=== PATIENT | male | born 1960 | race Caucasian/White ===

== ENCOUNTER 2018-01-06 08:49 | Inpatient (IN) | payer SELFPAY ==
--- NOTE | 2018-01-06 09:01 | ED.PDOC ---
History of Present Illness - General Chief Complaint: Abdominal Pain Stated Complaint: abdominal pain;n/v Time Seen by Provider: 01/06/18 09:01 Information Source: patient Exam Limitations: no limitations - History of Present Illness Initial Comments: espinoza Mendoza 57 y/o male stated that he had multiple episodes of nausea vomiting since early this am then followed by constant burning abdominal pain all over his abdomen had 3 bowel movements but no diarrhea.No ill contact,no recent antibiotic use,ate meat last night.Denies fever,dysuria ,blood in stool or urine. Abdominal Pain Onset Location: generalized abdomen Pain Radiation: no radiation Quality: burning, steady Timing/Duration: 4-6 hours Improving Factors: nothing Worsening Factors: nothing Associated Symptoms: other - see hpi Review of Systems - Review of Systems Constitutional: States: no symptoms reported EENTM: States: no symptoms reported Respiratory: States: no symptoms reported Cardiology: States: no symptoms reported Gastrointestinal/Abdominal: States: see HPI Genitourinary: States: no symptoms reported Musculoskeletal: States: no symptoms reported Skin: States: no symptoms reported Past Medical History (General) - Patient Medical History Hx Hypertension: Yes Hx Diabetes: No Hx Hepatitis C: Yes - active, no treatment Hx MRSA: Yes MRSA Source:: Wound Surgical History: appendectomy - Vaccination History Hx Tetanus, Diphtheria Vaccination: Yes - longer then 5 years ago Hx Influenza Vaccination: No - Social History Hx Tobacco Use: Yes Hx Substance Use: Yes - remote history Hx Physical Abuse: No Hx Emotional Abuse: No - Activities of Daily Living Grooming Ability: Independent Eating (Feeding) Ability: Independent Toileting Ability: Independent Family Medical History - Family History Father Family History: No Known Physical Exam - Physical Exam General Appearance: Alert, Anxious, No apparent distress Eyes, Ears, Nose, Throat Exam: PERRL/EOMI, normal ENT inspection Neck: non-tender, full range of motion, supple, normal inspection Respiratory: chest non-tender, lungs clear, normal breath sounds, no respiratory distress Cardiovascular/Chest: normal peripheral pulses, regular rate, rhythm, no murmur Peripheral Pulses: No deficit Gastrointestinal/Abdominal: normal bowel sounds, soft, no organomegaly, tenderness - no peritoneal signs mostly mid abdomen Back Exam: no CVA tenderness, no vertebral tenderness Extremity: normal range of motion, non-tender, no pedal edema, no calf tenderness Neurologic: alert, oriented x 3 Skin Exam: normal color, warm/dry Progress - Progress Progress: 01/06/18 09:58 Vital Signs - 8 hr 01/06/18 08:55 Temperature 97.4 F L Pulse Rate [ 64 Left Radial] Respiratory 20 Rate Blood Pressure 198/96 [Left Arm] O2 Sat by Pulse 100 Oximetry 01/06/18 11:48 Mentioned about his positve meth urine stated had smoked meth last week. - Results/Orders Results/Orders: 01/06/18 09:07 IV Care:Saline Lock per Protoc QSHIFT 01/06/18 10:00 Hold Metformin x 48Hrs [id number] 01/06/18 11:21 levoFLOXacin 500MG IV [Levaquin 500MG IV] 500 mg Premix Bag 1 bag IVPB ONCE metroNIDAZOLE IV PREMIX 500MG [Flagyl IV Premix 500 MG/100 ML] 500 mg Premix Bag 1 bag IVPB ONCE 01/06/18 11:37 TROPONIN-I Stat EKG Assessment ONCE 01/06/18 11:45 EKG STAT Laboratory Results - last 24 hr 01/06/18 01/06/18 01/06/18 09:10 09:10 09:38 WBC 12.2 H RBC 5.23 Hgb 16.6 Hct 50.1 MCV 95.8 H MCH 31.7 H MCHC 33.1 RDW 13.5 Plt Count 183 MPV 9.0 Absolute Neuts (auto) 10.70 H Absolute Lymphs (auto) 0.90 L Absolute Monos (auto) 0.50 Absolute Eos (auto) 0.10 Absolute Basos (auto) 0.10 Neutrophils % 87.8 H Lymphocytes % 7.2 L Monocytes % 4.0 Eosinophils % 0.4 L Basophils % 0.6 PT 9.2 INR 0.92 PTT (SP) 26.1 Sodium 137 Potassium 4.8 Chloride 104 Carbon Dioxide 29 Anion Gap 8.8 L BUN 10 Creatinine 0.89 BUN/Creatinine Ratio 11.2 Random Glucose 136 H Serum Osmolality 274.9 L Lactic Acid 1.0 Calcium 9.4 Magnesium 2.1 Total Bilirubin 0.8 Direct Bilirubin 0.1 Indirect Bilirubin 0.7 AST 22 ALT 33 Alkaline Phosphatase 73 Creatine Kinase 86 CK-MB (CK-2) 2.7 CK-MB (CK-2) % Not Reportable Troponin I < 0.02 Serum Total Protein 6.9 Albumin 3.9 Lipase 28 Urine Color Urine Appearance Urine pH Ur Specific [place] Urine Protein Urine Glucose (UA) Urine Ketones Urine Blood Urine Nitrite Urine Bilirubin Urine Urobilinogen Ur Leukocyte Esterase Urine RBC Urine WBC Ur Epithelial Cells Amorphous Sediment Urine Bacteria Urine Opiates Screen Urine Barbiturates Ur Phencyclidine Scrn U Amphetamin/Meth Scrn U Benzodiazepines Scrn U Cocaine Metab Screen U Cannabinoids Screen Ethyl Alcohol 01/06/18 01/06/18 01/06/18 09:38 10:28 10:28 WBC RBC Hgb Hct MCV MCH MCHC RDW Plt Count MPV Absolute Neuts (auto) Absolute Lymphs (auto) Absolute Monos (auto) Absolute Eos (auto) Absolute Basos (auto) Neutrophils % Lymphocytes % Monocytes % Eosinophils % Basophils % PT INR PTT (SP) Sodium Potassium Chloride Carbon Dioxide Anion Gap BUN Creatinine BUN/Creatinine Ratio Random Glucose Serum Osmolality Lactic Acid Calcium Magnesium Total Bilirubin Direct Bilirubin Indirect Bilirubin AST ALT Alkaline Phosphatase Creatine Kinase CK-MB (CK-2) CK-MB (CK-2) % Troponin I Serum Total Protein Albumin Lipase Urine Color Yellow Urine Appearance Sl cloudy Urine pH 8.5 H Ur Specific [place] 1.015 Urine Protein Negative Urine Glucose (UA) Negative Urine Ketones Negative Urine Blood Negative Urine Nitrite Negative Urine Bilirubin Negative Urine Urobilinogen 0.2 Ur Leukocyte Esterase Negative Urine RBC 0 Urine WBC 0 Ur Epithelial Cells 0 Amorphous Sediment 1+ Urine Bacteria 0 Urine Opiates Screen Negative Urine Barbiturates Negative Ur Phencyclidine Scrn Negative U Amphetamin/Meth Scrn Positive H U Benzodiazepines Scrn Negative U Cocaine Metab Screen Negative U Cannabinoids Screen Negative Ethyl Alcohol 0.00 - EKG/XRAY/CT XRAY: chest - atelectatic changes bilateral CT Ordered: Yes - gallstone;colitis Departure - Departure Clinical Impression: Colitis, acute, Methamphetamine dependence, History of hepatitis C Abdominal pain Qualifiers: Abdominal location: unspecified location Qualified Code(s): R10.9 - Unspecified abdominal pain Gallstone Qualifiers: Cholecystitis presence: without cholecystitis Biliary obstruction: without biliary obstruction Qualified Code(s): K80.20 - Calculus of gallbladder without cholecystitis without obstruction Hypertension Qualifiers: Hypertension type: unspecified Qualified Code(s): I10 - Essential (primary) hypertension Time of Disposition: 13:57 Disposition: Admit Patient Condition: Fair Departure Forms: Patient Portal Self Enrollment Home Medications: Ambulatory Orders Acetaminophen W/ Codeine [Tylenol W/ CODEINE #3] 1 ea PO Q4H PRN #12 04/10/15 Cephalexin [Keflex] 500 mg PO QID #28 cap 04/10/15 Decision To Admit - Decistion To Admit Decision to Admit Reason: Admit from ER Decision to Admit Date: 01/06/18 - D/W Saritha Monterroso-ANP/Hospitalist Decision to Admit Time: 13:55
[2018-01-06] MEDS ORDERED: LACTATED RINGERS 1,000 ML IVS ONE (09:08)
--- NOTE | 2018-01-06 09:33 | RAD ---
EXAM DESCRIPTION: Chest,1 View CLINICAL HISTORY: pain COMPARISON: None Available. Findings/impression: Single upright portable frontal view of the chest. Cardiomediastinal silhouette and pulmonary vascularity are within normal limits. Linear opacities in the bilateral lung bases most likely represent subsegmental atelectasis. Otherwise, lungs show no confluent pulmonary infiltrates. Costophrenic angles are sharp. No pneumothorax. Likely a healing/healed posterolateral left fifth rib fracture. Included upper abdomen shows a nonspecific bowel gas pattern. Electronically signed by: Kyaw Iglesias MD 01/06/2018 9:31 AM CDT
[2018-01-06] MEDS ORDERED: MORPHINE SULFATE INJ 10 MG/ML VIAL IV ONE (09:50)
[2018-01-06] MEDS ORDERED: PANTOPRAZOLE INJECTION 80 MG in SODIUM CHLORIDE 0.9% 100ML 80 ML IVPB ONE (09:50)
[2018-01-06] MEDS ORDERED: PROMETHAZINE HCL INJ 25 MG/ML VIAL IM ONE (09:50)
[2018-01-06] MEDS ORDERED: SODIUM CHLORIDE 0.9% 100ML 100 ML IVPB ONE (09:59)
[2018-01-06] MEDS ORDERED: PANTOPRAZOLE SODIUM IV 40 MG VIAL ONE (09:59)
--- NOTE | 2018-01-06 11:17 | CT ---
EXAM DESCRIPTION: Abdomen/Pelvis w/Contrast: Computed Tomography. CLINICAL HISTORY: abdominal pain. Right upper quadrant pain. COMPARISON: None. TECHNIQUE: Spiral-axial scans at 5 x 5 mm intervals through the abdomen and pelvis, after nonionic IV contrast without oral contrast. Coronal and sagittal 2.0 mm reconstructions. No delayed scans. No adverse reactions. Total Exam DLP: 1323.39 mGy-cm. This exam was performed according to our departmental dose-optimization program which includes automated exposure control, adjustment of the mA and/or kV according to patient size and/or use of iterative reconstruction technique; to reduce radiation dose to as low as reasonably achievable (ALARA). FINDINGS: Lung bases and pleura: Bibasilar atelectasis. Coronary artery calcifications. Liver, Stomach, Spleen, Adrenal Glands: Unremarkable. Pancreas, Gallbladder, Ducts: Multiple rim calcified stones in the gallbladder with the largest measuring 2 cm. No wall thickening. Large gallbladder fold near the neck which contains a stone. Gallbladder dilated but no fatty stranding. Common bile duct 6.5 mm proximally and 5 mm distally. Pancreas negative, pancreatic duct not dilated. Kidneys and Ureters: Unremarkable. Mesentery: No stranding, fascial thickening, ascites or free air. Aorta: Minimal distal atherosclerotic calcification and intimal wall thickening above the bifurcation. Small Bowel: Intermittent fluid and gas but no significant air-fluid levels or distention. Terminal Ileum/Cecum: Appendix not seen. Slightly distended by fecal material. Appendix not seen.. Colon: Intermittent segments of the colon appear to have minimal edema and wall thickening and lack of haustral markings. This can be seen in the hepatic flexure proximal transverse colon descending colon and proximal sigmoid. Marked redundancy of the sigmoid colon but no complications. Pelvic Organs: Prostate gland with central calcification abutting the urinary bladder with mild wall thickening. No fluid in the anterior peritoneal reflection. Spine and Bony Pelvis: Endplate spurs at some levels mostly lower thoracic spine. Abdominal Wall/Back Soft Tissues: Negative. IMPRESSION: 1. Gallbladder enlarged with prominent fold near the neck which contains a gallstone. 2 larger gallstones in the body, largest is 2 cm diameter. No wall thickening or surrounding fluid or mesenteric stranding. Borderline dilation of the common bile duct. Pancreas negative. 2. Nonspecific intermittent colitis in the proximal transverse colon, mid and distal descending colon and proximal sigmoid colon. Marked redundancy of the sigmoid colon. Colitis with these findings needs correlation for ulcerative colitis or Crohn's disease. Small bowel is unremarkable. 3. Minimally bladder wall thickening. Prostate gland abutting the bladder with central calcification. 4. Other organs are negative. Electronically signed by: Louis Alva MD 01/06/2018 11:16 AM CDT
[2018-01-06] MEDS ORDERED: ALUM & MAG HYDROX-SIMETHICONE 30 ML, LIDOCAINE VISCOUS 2% 15 ML PO ONE ×2 (11:18)
[2018-01-06] MEDS ORDERED: SUCRALFATE 1 GM TAB PO ONE (11:18)
[2018-01-06] MEDS ORDERED: metroNIDAZOLE IV PREMIX 500MG 500 MG in PREMIX BAG 1 BAG IVPB ONE (11:21)
[2018-01-06] MEDS ORDERED: levoFLOXacin 500MG IV 500 MG in PREMIX BAG 1 BAG IVPB ONE (11:21)
[2018-01-06] MEDS ORDERED: ALUM & MAG HYDROX-SIMETHICONE 30 ML UD ONE (11:44)
[2018-01-06] MEDS ORDERED: LIDOCAINE HCL 2% (MOUTH-THROAT) 15 ML UD ONE (11:44)
[2018-01-06] MEDS ORDERED: metroNIDAZOLE IV PREMIX 500MG 100 ML IVPB ONE ×3 (11:45→23:40)
[2018-01-06] MEDS ORDERED: SUCRALFATE 1 GM/10 ML 1 GM UD ONE (11:51)
[2018-01-06] MEDS ORDERED: SUCRALFATE 1 GM/10 ML 1 GM UD PO ONE (11:52)
[2018-01-06] MEDS ORDERED: levoFLOXacin 500MG IV 100 ML IVPB ONE (13:12)
[2018-01-06] MEDS ORDERED: PROMETHAZINE HCL INJ 50 MG in SODIUM CHLORIDE 0.9% 50ML 50 ML IM ONE (14:14)
[2018-01-06] MEDS ORDERED: PROMETHAZINE HCL INJ 25 MG/ML VIAL ONE (14:22)
[2018-01-06] MEDS ORDERED: SODIUM CHLORIDE 0.9% 50ML 50 ML ONE (14:22)
--- NOTE | 2018-01-06 15:07 | US ---
EXAM DESCRIPTION: Abdomen,Complete: Ultrasound. CLINICAL HISTORY: RUQ abd pain; gall stones COMPARISON: None Available. TECHNIQUE: Transabdominal scannin-dimensional and Doppler modes. FINDINGS: Gallbladder: Multiple echogenic stones in the gallbladder. Tender with transducer pressure. Gallbladder wall borderline thickened measuring 3.2 mm. No fluid around the wall. Common bile duct: 5.4 mm, normal caliber. Liver: Long axis of the right lobe is 12.5 cm. Left lobe was not well visualized due to patient body habitus. Normal echogenicity and ducts. Hepatopedal flow in the portal vein and normal caliber. Smooth capsule with no ascites. Pancreas: Normal size and echogenicity duct not seen.. Abdominal aorta: Normal caliber from the proximal segment to the distal bifurcation. IVC: visualized; normal caliber. Spleen normal echogenicity; long axis measurement is 10.7 cm. Right kidney: 10.9 cm long axis.Minimal cortical thinning but normal echogenicity. No hydronephrosis or perinephric fluid. Left kidney: 11 cm long axis. Minimal cortical thinning but normal echogenicity. No hydronephrosis or perinephric fluid. IMPRESSION: 1. Multiple echogenic stones in the gallbladder. Patient was tender with transducer pressure (positive Beltran's transducer sign). Minimal wall thickening. No fluid around the gallbladder wall. Consistent with cholelithiasis and acute cholecystitis. Normal caliber of the common bile duct. 2. Steatosis of the liver normal size. Normal ducts in vascularity. Smooth capsule with no ascites. Pancreas is unremarkable. 3. Minimal cortical thinning in the kidneys but otherwise unremarkable. Normal caliber of the abdominal aorta and IVC. Spleen is negative. Electronically signed by: Louis Alva MD 01/06/2018 3:06 PM CDT
--- NOTE | 2018-01-06 15:36 | HP ---
SUPERVISING PHYSICIAN: Festus Cervantes M.D. CHIEF COMPLAINT: Abdominal pain with nausea and vomiting. HISTORY OF PRESENT ILLNESS: This is a 57 year-old male patient that presented to the Emergency Room. At 3:30 this morning his nausea and vomiting started with severe right upper quadrant pain. He did have 3 bowel movements but he said they were not diarrhea. He said the burning was constant in his right upper quadrant and he threw up multiple times. It got to the point that it was so bad he came to the Emergency Room. He has not been around anyone that is sick recently or taken any antibiotics. He is hepatitis C positive and he does have a history of gastroesophageal reflux disease. In the Emergency Room his laboratory was done and he had a WBC of 12.2 with hemoglobin 16.6 and hematocrit 50.1. He had a left shift on his differential. Electrolytes were basically within normal limits. Lactic acid was 1. Cardiac enzymes were negative. Lipase was 28. Urine had a pH of 8.5. UDS was positive for amphetamines/methamphetamines. CT of the abdomen shows: 1) Gallbladder enlarged with prominent fold near the neck which contains a gallstone. Two larger gallstones in the body, the largest is 2 cm in diameter. No wall thickening or surrounding fluid or mesenteric stranding. Borderline dilatation of the common bile duct. The pancreas is negative. 2) Nonspecific intermittent colitis in the proximal transverse colon, mid and distal descending colon and proximal sigmoid colon. Marked redundancy of the sigmoid colon colitis with these findings. Needs correlation for ulcerative colitis or Crohn's disease. Small bowel is unremarkable. 3) Minimal bladder wall thickening. Prostate gland abutting the bladder with central calcification. 4 ) Other organs are negative. His abdominal ultrasound shows: 1) Multiple echogenic stones in the gallbladder. The patient was tender with transducer pressure, a positive Beltran's transducer sign. Minimal wall thickening. No fluid around the gallbladder wall consistent with cholelithiasis and acute cholecystitis. Normal caliber of the common bile duct. 2) Steatosis of the liver. Normal size. Normal ducts and vascularity. Smoother capsule with no ascites. Pancreas is unremarkable. 3) Minimal cortical thinning in the kidneys but otherwise unremarkable. Normal caliber of the abdominal aorta and IVC. Spleen is negative. The patient was given fluids in the E. R. He was also started on Levaquin and Flagyl. He was given some morphine for pain as well as some Phenergan for nausea. I was called for hospital admission. PAST MEDICAL HISTORY: 1. Gastroesophageal reflux disease. 2. Hypertension, although untreated. 3. Hepatitis C. PAST SURGICAL HISTORY: 1. Appendectomy. OUTPATIENT MEDICATIONS: None. ALLERGIES: NO KNOWN DRUG ALLERGIES. SOCIAL HISTORY: He lives in [place]. He smokes 1 pack of cigarettes daily. He does not drink any alcoholic beverages. He uses cocaine and methamphetamines occasionally. REVIEW OF SYSTEMS: GENERAL: Positive for subjective fever. Negative for fatigue or weight changes. HEENT: Negative for ear pain, vision changes, sore throat or sinus symptoms. RESPIRATORY: Negative for coughing, wheezing or shortness of breath. CARDIAC: Negative for chest pain, palpitations or tachycardia. GASTROINTESTINAL: As per history of present illness. GENITOURINARY: Negative for hematuria, dysuria or polyuria. SKIN: Negative for lesions or rashes. NEUROLOGIC: Negative for seizures, headaches or dizziness. PHYSICAL EXAMINATION: VITAL SIGNS: Temperature 98.7, heart rate 60, blood pressure 155/81, respiratory rate 16, O2 sat 98% on room air. GENERAL: This is a 57 year-old male patient who is lying in his hospital bed. He is in no acute distress. HEENT: Normocephalic and atraumatic. Pupils are equal and reactive. Oropharynx is clear. NECK: Supple without mass. RESPIRATORY: Essentially clear to auscultation bilaterally. CARDIOVASCULAR: Regular rate and rhythm. GASTROINTESTINAL: Abdomen is soft, nondistended. He has moderate tenderness in the right upper quadrant and epigastric area. EXTREMITIES: No cyanosis, clubbing or edema. NEUROLOGIC: He is awake, alert and oriented times three. SKIN: Warm and dry. LABORATORY: Labs and films are as per the history of present illness. ASSESSMENT: 1. Nonspecific intermittent colitis. 2. Cholelithiasis with acute cholecystitis with multiple echogenic stones and abdominal tenderness with a positive Beltran's transducer sign. 3. Gastroesophageal reflux disease. 4. Nausea and vomiting and right upper quadrant abdominal pain secondary to #1 and #2. 5. Tobacco abuse in a chronic smoker. 6. Drug abuse with a positive urine drug screen for amphetamines and methamphetamines. PLAN: We will admit the patient to the hospital. I will make him NPO and bowel rest with some primary IV fluids. I will consult Dr. Jade for in the morning. I will also consult [employer]. I have given him IV pain medications as well as IV antiemetics. Continue the Flagyl and Levaquin. He will need to see a GI doctor in consultation for his possible Crohn's and/or ulcerative colitis for a workup. I have encouraged him to stop smoking as well as quit using drugs. I have ordered incentive spirometry. We will continue to monitor him closely and follow as needed. Dr. Cervantes is the collaborating physician available for consultation. #[id number] [facility]
[2018-01-06] MEDS ORDERED: SODIUM CHLORIDE 0.9% (FLUSH) 10 ML SYG IV PRN (17:25)
[2018-01-06] MEDS ORDERED: ONDANSETRON INJ 4 MG/2 ML VIAL IV PRN (17:25)
[2018-01-06] MEDS: ENOXAPARIN SODIUM 40 MG/0.4 ML SYG SUBCU SCH (21:02)
[2018-01-06] MEDS: IV SET AND CAP CHANGE INJ INJ SCH (21:36)
[2018-01-06] MEDS: SODIUM CHLORIDE 0.9% (FLUSH) 10 ML SYG IV SCH (21:36)
[2018-01-06] MEDS: metroNIDAZOLE IV PREMIX 500MG 500 MG in PREMIX BAG 1 BAG IVPB SCH (22:30)
[2018-01-07] MEDS: DEX 5% W/NACL 0.45% 1000ML 1,000 ML IVS PRN ×2 (04:10→15:52)
[2018-01-07] MEDS: metroNIDAZOLE IV PREMIX 500MG 500 MG in PREMIX BAG 1 BAG IVPB SCH ×3 (05:31→22:07)
[2018-01-07] MEDS: PANTOPRAZOLE SODIUM IV 40 MG VIAL IV SCH (06:00)
[2018-01-07] MEDS: SODIUM CHLORIDE 0.9% (FLUSH) 10 ML SYG IV SCH ×2 (07:19→21:02)
[2018-01-07] MEDS: MORPHINE SULFATE INJ 10 MG/ML VIAL IV PRN ×2 (08:18→10:06)
[2018-01-07] MEDS ORDERED: cloNIDine PATCH 0.1MG/24HR 0.1 MG PATCH TD SCH (10:00)
[2018-01-07] MEDS ORDERED: ALBUTEROL SULFATE 2.5 MG/3 ML VIAL NEB PRN (12:01)
[2018-01-07] MEDS ORDERED: levoFLOXacin 500MG IV 100 ML IVPB ONE (12:07)
[2018-01-07] MEDS: levoFLOXacin 500MG IV 500 MG in PREMIX BAG 1 BAG IVPB SCH (12:09)
[2018-01-07] MEDS: ALBUTEROL SULFATE 2.5 MG/3 ML VIAL NEB SCH ×3 (12:34→20:36)
--- NOTE | 2018-01-07 13:12 | CONS ---
DATE OF CONSULTATION: 01/07/18 REFERRING PHYSICIAN: Hospitalist Service HISTORY OF PRESENT ILLNESS: The patient is a 57-year-old male who was admitted yesterday through the Emergency Room after the acute onset of nausea, vomiting and right upper quadrant pain. The patient noted he had had three bowel movements, but they were not loose and contained no blood. When he was seen in the Emergency Room, a CT scan was obtained which was consistent with colitis of unknown etiology and he was admitted with that diagnosis. When the patient was seen by the hospitalist, he was noted to have right upper quadrant pain with guarding. An ultrasound was obtained which revealed cholecystectomy and a positive ultrasound Beltran's sign, wall thickening consistent with acute cholecystitis. He was also noted to have fatty changes in the liver. He was started on antibiotics and made NPO. I have been asked to follow along and give recommendations for the treatment of this patient. PAST MEDICAL HISTORY: 1. Hypertension. 2. Gastroesophageal reflux disease. PAST SURGICAL HISTORY: 1. Appendectomy in the distant past. CURRENT MEDICATIONS: He takes no medications on a routine basis. ALLERGIES: NO KNOWN DRUG ALLERGIES. SOCIAL HISTORY: The patient has a greater than 30-pack year history of tobacco abuse. He does not use alcohol. He uses cocaine and methamphetamine occasionally. REVIEW OF SYSTEMS: He denies jaundice, but is known to have hepatitis C for many years. It has not been treated. There is no shortness of breath or chest pain although he complains it hurts to take a deep breath. He is not currently nauseated or having vomiting. He had no urinary symptoms. Other than the loose stools, he has had no change in his bowel habits or weight loss. PHYSICAL EXAMINATION: GENERAL: The patient is awake, alert, cooperative, in mild to moderate distress and quite uncomfortable. HEENT: Sclerae nonicteric. Mucous membranes moist. NECK: Without adenopathy. BACK: Without CVA tenderness. CHEST: Equal breath sounds bilaterally. ABDOMEN: Mildly distended, firm and tender in the right upper quadrant with a positive Beltran's sign, but no rebound tenderness and no masses palpated. RECTAL: Deferred. EXTREMITIES: Without cyanosis, clubbing or edema. LABORATORY: This morning his white count is 12,000, down from 12.2. Hemoglobin 16.3, down from 16.6. Platelet count 157,000 with 86% neutrophils. Liver functions show bilirubin has gone up to 1.1. AST is up to 64. Lipase was within normal limits in the Emergency Room. Potassium 4.7, creatinine 0.85. ASSESSMENT: 1. Acute cholelithiasis. 2. Acute cholecystitis. 3. Possible colitis, possibly ischemic in nature. 4. Recent use of methamphetamines. 5. Hypertension. 6. Gastroesophageal reflux disease. 7. Tobacco abuse. 8. Hepatitis C. PLAN: We will continue NPO status and IV antibiotics. We will follow the patient and reexamine and reevaluate lab in the morning. Certainly after discussion with Anesthesia, it would be appropriate to wait five days if possible prior to cholecystectomy and would be actually probably better with his history of hypertension and smoking to obtain cardiac evaluation prior to general anesthesia, but this will be followed on a clinical basis. #[id number] [facility]
[2018-01-07] MEDS ORDERED: metroNIDAZOLE IV PREMIX 500MG 100 ML IVPB ONE ×3 (13:25→19:40)
--- NOTE | 2018-01-07 13:56 | PN ---
SUPERVISING PHYSICIAN: Festus Cervantes MD DATE: 01/07/18 SUBJECTIVE: The patient is sleeping in his hospital bed. He awakens easily. He continues complaints of that right upper quadrant abdominal pain although he has no nausea or vomiting since being in the hospital. Right now, the pain is fairly well under control. He spoke with Dr. Jade earlier and knows he will most likely need his gallbladder out. I have encouraged him to stop smoking as well as we have talked about his use of methamphetamines and he said he does not do it very often anymore, he had just been stopped on a routine traffic violation and wanted to get his rid of his girlfriend's meth, so he swallowed it. There are no complaints of chest pain or shortness of breath, no diarrhea or constipation. OBJECTIVE: VITAL SIGNS: Afebrile. Heart rate runs between 99 and 102. Blood pressure has been as high as 173/90 and is now 157/78. Respiratory rate 20. O2 saturation 95% on room air. RESPIRATORY: Essentially clear to auscultation bilaterally. It is somewhat diminished at the bases. CARDIAC: Regular rate and rhythm. At times, he is slightly tachycardic. GASTROINTESTINAL: Abdomen is fairly soft. He does have some moderate tenderness in the right upper quadrant to the epigastric area with some mild guarding. Bowel sounds are positive. EXTREMITIES: No cyanosis, clubbing or edema. NEUROLOGIC: Awake, alert and oriented times three. LABORATORY: WBCs 12,000, hemoglobin 16.3, hematocrit 49.4. He does have a left shift on differential. Electrolytes are basically within normal limits. BUN is increased to 1.1 as well as his ALT is 64. AST is 41 and alkaline phosphatase is 91. All other labs and films have been reviewed via the EMR. ASSESSMENT: 1. Nonspecific intermittent colitis. 2. Cholelithiasis with acute cholecystitis with multiple echogenic stones and abdominal tenderness with a positive Beltran's transducer sign. 3. Gastroesophageal reflux disease. 4. Nausea and vomiting and right upper quadrant abdominal pain secondary to #1 and #2. 5. Tobacco abuse in a chronic smoker. 6. Drug abuse with a positive urine drug screen for amphetamines and methamphetamines. 7. Hypertension, currently on no outpatient medications. PLAN: We will continue present supportive care. The patient will continue on NPO status in case of surgery for tomorrow. I have put a Catapres patch on him. It would be beneficial for him to go home on some antihypertensive such as lisinopril. I have repeated his lab in the morning as well as some breathing treatments and pulmonary hygiene. I also ordered a nicotine patch since he has a long history of smoking. We discussed tobacco cessation as well as stopping his drug use. I have also discussed that he will need a blood pressure medicine on discharge. Dr. Jade is also seeing him and he may have to have surgery in the next day or so although due to his methamphetamine use, it would be ideal to wait for 5 days. We will continue to monitor the patient closely and follow as needed. Dr. Cervantes is the collaborating physician and available for consultation. #[id number] [facility] HOSPITALThelma
[2018-01-07] MEDS: ENOXAPARIN SODIUM 40 MG/0.4 ML SYG SUBCU SCH (21:02)
[2018-01-08] MEDS: metroNIDAZOLE IV PREMIX 500MG 500 MG in PREMIX BAG 1 BAG IVPB SCH ×3 (06:26→22:24)
[2018-01-08] MEDS: DEX 5% W/NACL 0.45% 1000ML 1,000 ML IVS PRN ×2 (06:26→17:18)
[2018-01-08] MEDS: PANTOPRAZOLE SODIUM IV 40 MG VIAL IV SCH (06:29)
[2018-01-08] MEDS: SODIUM CHLORIDE 0.9% (FLUSH) 10 ML SYG IV SCH ×2 (08:22→20:31)
[2018-01-08] MEDS: NICOTINE PATCH 14 MG TD SCH (08:26)
[2018-01-08] MEDS: ALBUTEROL SULFATE 2.5 MG/3 ML VIAL NEB SCH ×4 (08:40→20:11)
[2018-01-08] MEDS: MORPHINE SULFATE INJ 10 MG/ML VIAL IV PRN ×3 (09:32→19:34)
[2018-01-08] MEDS: levoFLOXacin 500MG IV 500 MG in PREMIX BAG 1 BAG IVPB SCH (12:52)
[2018-01-08] MEDS ORDERED: levoFLOXacin 500MG IV 100 ML IVPB ONE (12:52)
[2018-01-08] MEDS ORDERED: metroNIDAZOLE IV PREMIX 500MG 100 ML IVPB ONE ×3 (14:14→19:20)
--- NOTE | 2018-01-08 19:45 | PN ---
DATE: 01/08/18 SUPERVISING PHYSICIAN: Festus Cervantes M.D. SUBJECTIVE: The patient continues to have a significant amount of right upper quadrant pain and requires pain management. He has been afebrile but is NPO at this point awaiting possibly surgical procedure for cholecystitis. OBJECTIVE: VITAL SIGNS: Temperature 98, pulse 80, blood pressure 122/70, respirations 17 to 18, satting 95% on room air. CHEST: Lung sounds are clear, diminished towards the bases. HEART: Regular rate and rhythm. ABDOMEN: Soft with some rebound tenderness and some guarding noted to the right upper quadrant. Bowel sounds being present. EXTREMITIES: Without any clubbing, cyanosis or edema. NEUROLOGIC: He is alert and oriented times three. LABORATORY: White count is up to 15,000 today, hemoglobin 15.6, hematocrit 40.0 , platelet count 149,000. Differential shows to have a left shift. Chemistries show normal electrolytes. BUN 10, creatinine 1.01, glucose 91. Liver functions show increasing elevated total bilirubin, now is at 1.3. All other liver functions showing to be within normal limits. ASSESSMENT: 1. Nonspecific intermittent colitis improving with fluids. 2. Cholelithiasis with acute cholecystitis with multiple echogenic stones and abdominal tenderness with a positive Beltran's sign awaiting surgical intervention. 3. Gastroesophageal reflux disease, stable and monitoring. 4. Nausea and vomiting and right upper quadrant abdominal pain secondary to #1 and #2. 5. Tobacco abuse in a smoker. 6. Drug abuse with a positive urine drug screen for amphetamines and methamphetamines. 7. Hypertension, stable and monitoring. PLAN: The patient will be NPO today awaiting possible surgery. His blood pressures have been stable. The biggest concern is should he wait an additional 2 more days since he did test positive for meth. Will await determination of this by Dr. Jade and Anesthesia. Continue to encourage smoking cessation as well as stopping drug use. Will hopefully be able to discharge in the next 24 to 48 hours depending on the patient's proceeding to surgery or not. Until then will continue to monitor and treat as needed. #[id number] [facility]
[2018-01-08] MEDS: ENOXAPARIN SODIUM 40 MG/0.4 ML SYG SUBCU SCH (20:31)
[2018-01-08] MEDS ORDERED: BACITRACIN 0.9 GM UD PCKT ONE (23:10)
[2018-01-09] MEDS: DEX 5% W/NACL 0.45% 1000ML 1,000 ML IVS PRN (02:00)
[2018-01-09] MEDS: MORPHINE SULFATE INJ 10 MG/ML VIAL IV PRN ×3 (03:08→23:21)
[2018-01-09] MEDS: PANTOPRAZOLE SODIUM IV 40 MG VIAL IV SCH (06:06)
[2018-01-09] MEDS: metroNIDAZOLE IV PREMIX 500MG 500 MG in PREMIX BAG 1 BAG IVPB SCH ×3 (06:07→22:20)
[2018-01-09] MEDS: ALBUTEROL SULFATE 2.5 MG/3 ML VIAL NEB SCH ×4 (07:52→20:45)
[2018-01-09] MEDS ORDERED: MIDAZOLAM INJ 2 MG/2 ML VIAL ONE (08:45)
[2018-01-09] MEDS ORDERED: fentaNYL CITRATE INJ 50 MCG/ML AMP ONE (08:45)
[2018-01-09] MEDS ORDERED: ACETAMINOPHEN IV 1000MG 100 ML ONE (08:45)
[2018-01-09] MEDS ORDERED: ROCURONIUM BROMIDE 10 MG/ML VIAL ONE ×2 (08:46→10:06)
[2018-01-09] MEDS ORDERED: BUPIVACAINE 0.25% W/EPI 50 ML VIAL INJ ONE (08:46)
[2018-01-09] MEDS ORDERED: HEPARIN SODIUM (PORCINE) 10,000 UNITS/ML VIAL ONE (08:47)
[2018-01-09] MEDS: NICOTINE PATCH 14 MG TD SCH (08:52)
[2018-01-09] MEDS: SODIUM CHLORIDE 0.9% (FLUSH) 10 ML SYG IV SCH ×2 (08:52→20:45)
[2018-01-09] MEDS ORDERED: ELECTROLYTE-A 1,000 ML IVS ONE ×2 (09:28→10:10)
[2018-01-09] MEDS ORDERED: HYDROmorphone HCL INJ 2 MG/ML VIAL ONE (10:03)
[2018-01-09] MEDS ORDERED: levoFLOXacin 500MG IV 100 ML IVPB ONE (12:30)
[2018-01-09] MEDS ORDERED: SUGAMMADEX SODIUM 200 MG/2 ML VIAL IV ONE (12:48)
[2018-01-09] MEDS ORDERED: ONDANSETRON INJ 4 MG/2 ML VIAL IV PRN (13:38)
[2018-01-09] MEDS ORDERED: HYDROcodone 5MG/APAP 325MG 1 EA TAB PO PRN (13:38)
[2018-01-09] MEDS ORDERED: ONDANSETRON INJ 4 MG/2 ML VIAL ONE (13:56)
[2018-01-09] MEDS ORDERED: PROMETHAZINE HCL INJ 25 MG/ML VIAL ONE (14:12)
[2018-01-09] MEDS: LACTATED RINGERS 1,000 ML IVS PRN ×3 (14:40→21:57)
[2018-01-09] MEDS ORDERED: metroNIDAZOLE IV PREMIX 500MG 100 ML IVPB ONE ×3 (14:48→19:47)
[2018-01-09] MEDS: levoFLOXacin 500MG IV 500 MG in PREMIX BAG 1 BAG IVPB SCH (14:56)
--- NOTE | 2018-01-09 17:23 | OP ---
DATE OF PROCEDURE: 01/09/18 PREOPERATIVE DIAGNOSIS: 1. Cholelithiasis. 2. Acute cholecystitis. POSTOPERATIVE DIAGNOSIS: 1. Cholelithiasis. 2. Acute cholecystitis. 3. Acute gangrenous cholecystitis. SURGICAL PROCEDURE: 1. Laparoscopic cholecystectomy with intraoperative cholangiography using fluoroscopy. SURGEON: Cristopher Jade M.D. SHEARING MACHINE TENDER: None. ANESTHESIA: General endotracheal anesthesia. INDICATION FOR SURGERY: The patient is a 57 year-old male who was admitted from the Emergency Room with a diagnosis of colitis based on loose stools and a CT scan which revealed 2 area in the colon which appeared to have some thickening of the bowel wall. When he was seen by the hospitalist he was felt to have right upper quadrant pain. Ultrasound was obtained which was consistent with acute cholecystitis. He was made NPO and started on IV antibiotics. His pain an white count did not improve. There was the situation that he was found to have methamphetamine in his blood on admission, so Anesthesia wished to wait as long as possible and he was brought to the Surgical Suite this morning for cholecystectomy after the risks, benefits, and alternatives to the procedure were discussed and accepted. FINDINGS AT TIME OF PROCEDURE: There were dense adhesions from the omentum to the gallbladder. Intraoperative cholangiography revealed free flow into the duodenum with no filling defects or strictures. Pathology is pending. The gallbladder was quite inflamed. DESCRIPTION OF PROCEDURE: After adequate general endotracheal anesthesia was obtained, the patient was prepped and draped in the usual sterile manner. A surgical time out was taken. At this time a supraumbilical incision was made first with infiltration of anesthesia. Then with a sharp knife dissection was carried down through the skin an subcutaneous tissue using blunt dissection. The midline fascia was identified. Traction sutures were placed on either side of the midline. A small incision was made in the midline fascia and the peritoneum was opened bluntly. Bandar trocar was introduced under direct vision into the abdominal cavity and fixed in place with a 20 mL balloon. When this was done, CO2 was insufflated until a pressure of 12 mmHg was reached and the abdomen was tympanitic in all four quadrants. At this point, the laparoscope was introduced. The abdomen was inspected in all four quadrants. The patient was then placed in reverse Trendelenburg position, turned to the left side. The upper abdominal ports were placed under direct vision in the usual manner. When this was done, we began tedious generally blunt dissection. A small amount of electrocautery was used to dissect the omentum off the gallbladder. When this was done, a Storz catheter was introduced and approximately 55 mL of dark thick bile was aspirated from the gallbladder. This allowed us to grab the top of the gallbladder with a grasper and elevate it superiorly. When this was done, eventually dissection was carried down to the neck of the gallbladder which was grasped, elevated, retracted laterally and anteriorly. The triangle of Calot was then explored with the cystic duct identified. It was dissected free circumferentially and clipped proximally. A small incision was made in the cystic duct. A cholangiogram catheter was introduced through a separate stab wound in the right upper quadrant, introduced into the cystic duct and clipped in place. Cholangiograms were taken using fluoroscopy which revealed free flow into the duodenum and no filling defects or strictures were identified. The cystic artery identified and clipped twice and divided. The gallbladder was then dissected free from the gallbladder bed of the liver with difficult tedious dissection using blunt dissection and electrocautery. It was eventually removed from the gallbladder bed of the liver, placed in an EndoCatch bag and removed through the supraumbilical port site under direct vision in the usual manner requiring crushing of the 2 large stones to be removed. When this was done, the supraumbilical port was replaced. The Sridevi hepatis, the gallbladder bed of the liver and the subhepatic space and subphrenic space were all irrigated copiously with saline and inspected. Hemostasis was thought to be adequate. There was no bile leak identified. A 15 Azeri round J-P drain was place in the subhepatic space in the gallbladder bed of the liver through the lateral port site and sutured in place with #3-0 nylon ligature. When this was done, the remaining ports were removed under direct vision. Hemostasis was noted to be adequate. The CO2, the laparoscope and the supraumbilical port were removed. The supraumbilical port site fascia was approximated with a single [id number] suture of 0 Vicryl. Subcutaneous tissue was irrigated with saline. Skin edges were approximated with 4-0 Vicryl subcuticular sutures, benzoin and Steri-Strips. Sterile dressings were applied. The J-P drain was placed to closed grenade suction. Sponge count, instrument count, and needle count were correct. Estimated blood loss was approximately 200 mL. #[id number] [facility]
[2018-01-09] MEDS: IV SET AND CAP CHANGE INJ INJ SCH (17:37)
--- NOTE | 2018-01-09 18:01 | PN ---
DATE: 01/09/18 SUPERVISING PHYSICIAN: Festus Cervantes M.D. SUBJECTIVE: The patient is seen in postoperative state after having a laparoscopic cholecystectomy. He is in stable condition. Alert. Has good pain control. He did have a little issue initially with nausea which resolved. OBJECTIVE: VITAL SIGNS: Showing to be stable with temperature 98, pulse 72, blood pressure 107/82, respirations 16, satting 93% on nasal cannula at 2 liters. I's and O's show a positive balance of 25 with 2400 in, 2375 out. Weight 92.6 kg. GENERAL: The patient is resting comfortably. Appears to be in no acute distress. He is alert. CHEST: Lungs were clear to auscultation, just slightly diminished towards the bases. HEART: Regular rate and rhythm. ABDOMEN : Tender postoperatively. No rebound tenderness. There are several bandaids in place and J-P drain to the right upper quadrant draining serous fluid. Bowel sounds were not heard initially. EXTREMITIES: without any clubbing, cyanosis or edema. NEUROLOGIC: He is alert and oriented times three. LABORATORY: Laboratory this morning showed white count normalized at 10,800, hemoglobin 14.2, hematocrit 42.9, platelet count 142,000. Differential shows a continued left shift. Chemistries showed normal electrolytes, potassium 4.0, BUN 11, creatinine 0.85, glucose 107, calcium 8, but his albumin was 2.3. Total bilirubin was down to 0.8. All other liver functions were showing to be normalized. ASSESSMENT: 1. Postoperative day 0 for an emergent laparoscopic cholecystectomy for acute cholecystitis. 2. Gastroesophageal reflux disease, stable and monitoring. 3. Tobacco abuse in a current smoker. Continues to be encouraged to stop. 4. Drug abuse with a positive urine drug screen for amphetamines and methamphetamines. 5. Hypertension, stable and monitoring. PLAN: The patient will be advanced on his diet and will follow the patient and defer postsurgical management to Dr. Jade in regards to pain management and further laboratory studies. He is encouraged to utilize his pillow for splinting and to utilize his incentive spirometry to prevent any atelectasis. He remains on DVT prophylaxis as per protocol. Will anticipate discharge hopefully within the next 24 to 48 hours depending on clinical improvement. Until then, will continue to monitor and treat appropriately. #[id number] [facility]
[2018-01-09] MEDS ORDERED: PANTOPRAZOLE SODIUM TAB 40 MG PO ONE (19:47)
[2018-01-09] MEDS ORDERED: MORPHINE SULFATE INJ 10 MG/ML VIAL IV ONE (20:36)
[2018-01-09] MEDS: ENOXAPARIN SODIUM 40 MG/0.4 ML SYG SUBCU SCH (20:45)
[2018-01-10] MEDS: MORPHINE SULFATE INJ 10 MG/ML VIAL IV PRN ×5 (01:22→16:48)
[2018-01-10] MEDS: metroNIDAZOLE IV PREMIX 500MG 500 MG in PREMIX BAG 1 BAG IVPB SCH ×3 (05:44→21:37)
[2018-01-10] MEDS: LACTATED RINGERS 1,000 ML IVS PRN ×3 (05:44→23:10)
[2018-01-10] MEDS: PANTOPRAZOLE SODIUM TAB 40 MG PO SCH (06:10)
[2018-01-10] MEDS: SODIUM CHLORIDE 0.9% (FLUSH) 10 ML SYG IV SCH ×2 (08:01→20:58)
[2018-01-10] MEDS: NICOTINE PATCH 14 MG TD SCH (08:01)
[2018-01-10] MEDS: ALBUTEROL SULFATE 2.5 MG/3 ML VIAL NEB SCH ×4 (08:38→20:49)
[2018-01-10] MEDS ORDERED: MAGNESIUM HYDROXIDE 30 ML UD PO ONE (09:01)
[2018-01-10] MEDS: levoFLOXacin 500MG IV 500 MG in PREMIX BAG 1 BAG IVPB SCH (11:45)
--- NOTE | 2018-01-10 12:21 | PN ---
DATE: 01/10/18 SUPERVISING PHYSICIAN: Festus Cervantes M.D. SUBJECTIVE: The patient has been ambulating. He has had no nausea or vomiting. He is tolerating a clear liquid diet. He still has some issues with pain but it is well controlled with pain management. J-P drain continues to be in place with more sanguinous-looking fluid. He has been afebrile. OBJECTIVE: VITAL SIGNS: Temperature 98.1, pulse 102, blood pressure 159/79, respirations 18, satting 93% on room air. I's and O's show a positive balance of 775 with 2950 in, 2175 out. Weight is 93.7 kg. GENERAL: The patient is resting comfortably. He is alert. CHEST: Lungs were clear to auscultation bilaterally without any rhonchi, wheezing or rales. HEART: Regular rate and rhythm. ABDOMEN: Soft with very hypoactive bowel sounds with a J-P drain in place in the right upper quadrant with some notable drainage around the insertion site, although it is just sanguinous in nature. NEUROLOGIC: He is alert and oriented times three. LABORATORY: Postoperative laboratory shows a white count of 15,300 with hemoglobin 14.4, hematocrit 43.7, platelet count 211,000. Differential does continue to show a left shift. Chemistries show normal electrolytes today with BUN 12, creatinine 0.92, calcium is normalized at 8.4. Bilirubin remains normal at 0.6. All liver functions remain within normal limits. ASSESSMENT: 1. Postoperative day #1 for an emergent laparoscopic cholecystectomy with intraoperative cholangiography using fluoroscopy secondary to acute cholecystitis complicated by acute gangrenous cholecystitis. 2. Acute cholecystitis with gangrenous cholecystitis as noted above requiring surgical intervention with the patient showing good response to treatment. Continues on parenteral antibiotics. 3. Gastroesophageal reflux disease, stable and monitoring. 4. Tobacco abuse in a smoker. Continues to be encouraged to stop smoking. 5. Abuse of illegal drugs to include methamphetamines and amphetamines. Encouraged to stop using drugs. 6. Hypertension, stable and monitoring. PLAN: The patient has been advanced on his diet to clear liquids. Will continue to follow the patient and defer all surgical management postoperatively to Dr. Jade. He does remain on antibiotics. Will continue with those until we can further discuss the patient's case with Dr. Jade and decision to stopping antibiotics. Will anticipate length of stay to be at least another 24 to 48 hours. Until the patient is showing clinical stability and can be discharged to followup in the outpatient setting, will continue to monitor and treat as needed. #[id number] [facility]
[2018-01-10] MEDS ORDERED: metroNIDAZOLE IV PREMIX 500MG 100 ML IVPB ONE ×2 (13:57→20:25)
[2018-01-10] MEDS: ENOXAPARIN SODIUM 40 MG/0.4 ML SYG SUBCU SCH (20:57)
[2018-01-11] MEDS: metroNIDAZOLE IV PREMIX 500MG 500 MG in PREMIX BAG 1 BAG IVPB SCH (05:40)
[2018-01-11] MEDS: PANTOPRAZOLE SODIUM TAB 40 MG PO SCH (05:47)
[2018-01-11] MEDS: LACTATED RINGERS 1,000 ML IVS PRN (07:55)
[2018-01-11] MEDS: ALBUTEROL SULFATE 2.5 MG/3 ML VIAL NEB SCH ×3 (07:58→16:53)
[2018-01-11] MEDS: NICOTINE PATCH 14 MG TD SCH (09:46)
[2018-01-11] MEDS: SODIUM CHLORIDE 0.9% (FLUSH) 10 ML SYG IV SCH (11:52)
[2018-01-11] MEDS ORDERED: levoFLOXacin 500 MG TAB PO SCH (12:00)
[2018-01-11] MEDS ORDERED: metroNIDAZOLE 500 MG TAB PO SCH (14:00)
[2018-01-11 14:07] VITALS: O2SAT 98
[2018-01-11 18:37] VITALS: BP 155/79; TEMP 98.4
--- NOTE | 2018-01-12 10:19 | DS ---
SUPERVISING PHYSICIAN: Skyler Yousif MD ADMISSION DIAGNOSIS: 1. Nonspecific intermittent colitis. 2. Cholelithiasis with acute cholecystitis with multiple stones and abdominal tenderness with a positive Beltran's sign. 3. Gastroesophageal reflux disease. 4. Nausea and vomiting and right upper quadrant abdominal pain secondary to #1 and #2. 5. Tobacco abuse in a chronic smoker. 6. Drug abuse with a positive urine drug screen for amphetamines and methamphetamines. DISCHARGE DIAGNOSIS: 1. Postoperative day #2 for an emergent laparoscopic cholecystectomy with intraoperative cholangiography using fluoroscopy secondary to acute cholecystitis complicated by acute gangrenous cholecystitis, improved postoperatively and stable. 2. Acute cholecystitis with gangrenous cholecystitis as noted above requiring surgical intervention with the patient showing good response to treatment and on continued antibiotics at discharge. 3. Gastroesophageal reflux disease, stable and monitoring. 4. Tobacco abuse, encouraged to stop smoking. 5. Abuse of illegal drugs to include methamphetamines and amphetamines. He is encouraged to stop using drugs. 6. Hypertension, stable. REASON FOR HOSPITALIZATION: Mr. Mendoza is a 57-year-old male patient that presented to the Emergency Room on 01/06/18. At 3:30 AM on the morning of admission, he started having nausea and vomiting with severe right upper quadrant pain. He did have three bowel movements, but he noted he did not have diarrhea. He said he had some burning in his right upper quadrant and he threw up multiple times. It got to the point that it was so bad he came to the Emergency Room. He had not been around anyone that had been sick recently or taken any antibiotics. He is hepatitis C positive and he does have a history of gastroesophageal reflux disease. In the Emergency Room, his laboratory was done and he had a WBC of 12.2. Lactic acid was 1. Cardiac enzymes were negative. Lipase was 28. CT of the abdomen showed enlarged gallbladder with prominent fold near the neck which contained gallstones. There was also note of nonspecific intermittent colitis in the proximal transverse colon, mid and distal descending colon and proximal sigmoid colon. The patient was given fluids in the Emergency Room. He was also started on Levaquin and Flagyl. He was admitted to the Medical/Surgical Floor for further evaluation and surgical consultation. LABORATORY: White count on admission was 12,200. Prior to discharge , it had normalized to 10,000. Hemoglobin and hematocrit were stable and on discharge were 12.7 and 37.6 with platelet count 178,000. Differential did show a consistent left shift. Coagulation studies showed normal PT and PT-T. Chemistries showed fairly stable electrolytes that were within normal limits with potassium initially on admission 4.8, BUN 10, creatinine 0.89. Liver functions all within normal limits. Prior to discharge, electrolytes showed low potassium 3.5, BUN 14, creatinine 0.68. Liver functions were all within normal limits. Bilirubin was elevated on admission up to 1.3, but normalized to 0.8 prior to discharge. Urinalysis was within normal limits. He had one stool occult blood that was negative. Toxicology screen showed urine drug screen positive for amphetamines, methamphetamines. Negative for all other substances tested. C. difficile was negative for both antigen and toxin. Stool cultures were pending at time of discharge. RADIOLOGY: CT of the abdomen in the Emergency Room showed gallbladder enlarged with prominent flow near the neck containing gallstones, two large gallstones in the body, the largest measuring 2 cm in diameter. Pancreas was noted to be negative. There was borderline dilation of the common bile duct. There was also note of nonspecific intermittent colitis in the proximal transverse colon, mid and distal descending colon, and proximal sigmoid colon as well as minimal bladder wall thickening, prostate gland abutting the bladder with central calcification. Please see that report for full details. He also had a chest x- ray in the Emergency Room and per radiologic interpretation showed subsegmental atelectasis in bilateral lungs. No pulmonary infiltrates. No pneumothorax. There was note of a posterolateral left rib fifth rib fracture and nonspecific bowel gas pattern. CONSULTATIONS: Surgical consultation with Dr. Jade. Please see his note for full details. PROCEDURES: Laparoscopic cholecystectomy with intraoperative cholangiography using fluoroscopy. Please see Dr. Jade's note for full details. HOSPITAL COURSE: Mr. Mendoza was admitted on 01/06/18 as noted in history of present illness for acute cholecystitis. He was started on Flagyl and Levaquin. A surgical consultation was secured with Dr. Jade. The patient was made NPO and followed closely. On 01/09/18, the patient was taken to the Operating Room for emergent laparoscopic cholecystectomy. He had no complications intraoperatively and was followed postoperatively. He had a MONSTER drain placed initially which was removed prior to discharge. He was advanced on his diet to a low fat diet which he was tolerating well and not requiring any significant pain management. It was therefore felt he could continue with outpatient management. PLAN: Mr. Mendoza was discharged on 01/11/18 with instructions to followup with Dr. Jade in one week to call his office for an appointment. He was to return to the hospital or call Dr. Jade if he had any concerning symptoms. Instructions included low fat diet, low cholesterol and to increase activity as tolerated, but no lifting or pulling. He may shower, but no tub bath. MEDICATIONS AT DISCHARGE: 1. Tylenol #3, 1 q.4h. as needed for pain, #30. 2. Levaquin 750 mg daily for a total of 4 days. 3. Flagyl 500 mg 3 times a day for an additional 4 days. No other medications were prescribed. All other medications prior to admission were resumed. DISPOSITION: The patient was discharged home with friends and family. Condition on discharge was stable and improved. #[id number] [facility]
== END 2018-01-11 18:05 | disposition home or self-care (01) | DRG 419 ==
LOC: ER 08:49 → MS 15:34
PROVIDERS: ADMIT Nurse Practitioner Acute Care; ATTEND Nurse Practitioner Family
PROC: BF121ZZ Fluoroscopy of Gallbladder using Low Osmolar Contrast (ICD-10-PCS; 2018-01-09)
PROC: 0FT44ZZ Resection of Gallbladder, Percutaneous Endoscopic Approach (ICD-10-PCS; principal; 2018-01-09 09:00)
DX: K80.00 Calculus of gallbladder with acute cholecystitis without obstruction (principal); K21.9 Gastro-esophageal reflux disease without esophagitis; B19.20 Unspecified viral hepatitis C without hepatic coma; K52.9 Noninfective gastroenteritis and colitis, unspecified; I10 Essential (primary) hypertension; F17.210 Nicotine dependence, cigarettes, uncomplicated; F15.10 Other stimulant abuse, uncomplicated; F14.90 Cocaine use, unspecified, uncomplicated

== ENCOUNTER → 2018-10-22 | Outpatient (CLI) | payer OTHER ==
--- NOTE | 2018-10-25 09:09 | RAD ---
EXAM DESCRIPTION: Chest,2 Views CLINICAL HISTORY: TB SCREEN COMPARISON: Previous study January 06, 2018 TECHNIQUE: PA/lateral FINDINGS: There is no acute appearing cardiac or pulmonary abnormality. Heart size is normal with normal pulmonary vascularity. No pleural effusion or pneumothorax. Lungs are clear with no consolidating infiltrate. Old healed left rib fractures. Lateral view shows intact sternum and T-spine. IMPRESSION: No acute process is identified in the chest. Electronically signed by: Marino Law MD 10/25/2018 9:08 AM CDT
== END ==
LOC: RAD 15:12
PROVIDERS: ATTEND Nurse Practitioner Family
DX: Z11.1 Encounter for screening for respiratory tuberculosis (principal)